=== PATIENT | female | born 1990 | race Caucasian/White ===

== ENCOUNTER → 2019-09-06 11:02 | Outpatient (CLI) | payer OTHER, SELFPAY ==
[2019-08-25 15:05] VITALS: BMI 37.1
[2019-09-06 11:21] LABS: Absolute Lymphocyte Count 3.43 X10^3/uL (0.83-4.51); Absolute Neutrophil Count 7.3 X10^3/uL (2.0-7.7); Basophil# 0.06 X10^3/uL; Basophil% 0.5 % (0-1); Eosinophil# 0.22 X10^3/uL; Eosinophils% 1.9 % (0-5); Hematocrit 43.8 % (37-47); Hemoglobin 14.8 g/dL (12.0-15.0); Lymphocyte # 3.43 X10^3/ul (4.0); Lymphocyte % 29.4 % (19-41); Mean Corp Hgb Conc 33.8 g/dL (32-36); Mean Corpuscular Hgb 28.7 pg (27.0-32.0); Mean Corpuscular Volume 84.9 fL (81-99); Mean Platelet Vol. 11.1 fl (6.2-12.0); Monocyte# 0.61 X10^3/uL; Monocyte% 5.2 % (0-10); NRBC Flagged by Analyzer 0 % (0-5); Neutrophil # 7.31 X10^3/uL (2.7-7.7); Neutrophil % 62.7 % (47-70); Platelet Count 416 K/mm3 (150-450); RBC Distribution Width CV 12.4 % (11.6-14.6); RBC Distribution Width SD 37.9 fl (35.1-43.9); Red Blood Count 5.16 M/mm3 (4.2-5.4); White Blood Count 11.7 K/mm3 (4.4-11.0)
[2019-09-06 11:52] LABS: Hemoglobin A1c 6.2 % (4.2-6.3)
[2019-09-06 12:09] LABS: Cholesterol 173 mg/dL (200); Estradiol 70.2 pg/mL; Glucose 117 mg/dL (74-106); High Density Lipoprotein 15 mg/dL; Prolactin 5.9 ng/mL; Thyroid Stim Hormone (TSH) 2.72 uIU/mL (0.358-3.74); Triglycerides 940 mg/dL
[2019-09-08 09:14] LABS: Progesterone Level 0.26 ng/mL (See Comment)
[2019-09-08 12:07] LABS: DHEA Sulfate 114.7 ug/dL (84.8-378.0)
[2019-09-09 10:42] LABS: Testosterone Free 5.1 pg/mL (0.0-4.2)
[2019-09-10 20:19] LABS: 17-Hydroxyprogesterone 81 ng/dL (.)
== END ==
PROVIDERS: PCP Family Medicine; Referring Provider Nurse Practitioner Women's Health; Visit Provider Nurse Practitioner Women's Health
DX: N97.0 Female infertility associated with anovulation (principal); Z87.42 Personal history of other diseases of the female genital tract
CPT/HCPCS: 36415; 80061; 82627; 82670; 82947; 83036; 83498; 84144; 84146; 84402; 84443; 85025; 82626

== ENCOUNTER → 2019-11-04 07:29 | Outpatient (CLI) | payer OTHER, SELFPAY ==
[2019-08-25 15:05] VITALS: BMI 37.1
[2019-11-04 09:58] LABS: Cholesterol 224 mg/dL (200); High Density Lipoprotein 15 mg/dL; Triglycerides 1134 mg/dL
== END ==
PROVIDERS: PCP Family Medicine; Referring Provider Family Medicine; Visit Provider Family Medicine
DX: E78.1 Pure hyperglyceridemia (principal)
CPT/HCPCS: 36415; 80061

== ENCOUNTER → 2020-08-09 06:12 | Outpatient (CLI) | payer OTHER, SELFPAY ==
[2019-08-25 15:05] VITALS: BMI 37.1
[2020-06-21 08:59] VITALS: BMI 36.5
[2020-08-09 07:11] LABS: Absolute Lymphocyte Count 5.78 X10^3/uL (0.83-4.51); Absolute Neutrophil Count 7.7 X10^3/uL (2.0-7.7); Basophil# 0.09 X10^3/uL; Basophil% 0.6 % (0-1); Eosinophil# 0.37 X10^3/uL; Eosinophils% 2.5 % (0-5); Hematocrit 41.9 % (37-47); Hemoglobin 13.9 g/dL (12.0-15.0); Lymphocyte # 5.78 X10^3/ul (4.0); Lymphocyte % 38.6 % (19-41); Mean Corp Hgb Conc 33.2 g/dL (32-36); Mean Corpuscular Volume 87.3 fL (81-99); Mean Platelet Vol. 10.7 fl (6.2-12.0); Monocyte# 0.97 X10^3/uL; Monocyte% 6.5 % (0-10); NRBC Flagged by Analyzer 0 % (0-5); Neutrophil # 7.72 X10^3/uL (2.7-7.7); Neutrophil % 51.4 % (47-70); POSITIVE DIFFERENTIAL YES; Platelet Count 435 K/mm3 (150-450); RBC Distribution Width CV 13.2 % (11.6-14.6); RBC Distribution Width SD 41.1 fl (35.1-43.9)
[2020-08-09 07:17] LABS: Differential Indicated SCAN CRITERIA MET
[2020-08-09 07:31] LABS: Differential Comment SCANNED; Reactive Lymphocyte 1+
[2020-08-09 07:36] LABS: Microalbumin,Random Urine 46.5 mg/L (NO RANGE EST.); Microalbumin:Creatinine Ratio 19.1 mg/g CRE (<30 mg/g CRE)
[2020-08-09 07:43] LABS: Hemoglobin A1c 6.2 % (3.8-5.6)
[2020-08-09 09:29] LABS: Vitamin D,25 Hydroxy 11.6 ng/mL
[2020-08-09 09:42] LABS: ALB/GLOB Ratio 1.1 RATIO (0.9-2.4); AST(SGOT) 14 U/L (15-37); Alanine Aminotransfer ALT/SGPT 19 U/L (13-56); Albumin, Serum 3.6 g/dL (3.2-5.0); Alkaline Phosphatase 81 U/L (45-117); Anion Gap 7 (5-15); BUN 10 mg/dL (7-18); BUN/Creat Ratio 11.5 RATIO (10-20); Calcium,Total 8.5 mg/dL (8.5-10.1); Chloride 105 mmol/L (98-107); Cholesterol 150 mg/dL (200); Creatinine, Serum 0.87 mg/dL (0.55-1.02); EST Glomerular Filtration Rate 80 mL/min (>60); Est Glom Filt Rate - Afr Amer 96 mL/min (>60); Globulin 3.3 g/dL (2.2-4.2); Glucose 115 mg/dL (74-106); High Density Lipoprotein 18 mg/dL; Potassium 3.7 mmol/L (3.5-5.1); Protein, Total 6.9 g/dL (6.4-8.2); Sodium Level 138 mmol/L (136-145); Triglycerides 666 mg/dL
== END ==
PROVIDERS: PCP Family Medicine; Referring Provider Family Medicine; Visit Provider Family Medicine
DX: E11.9 Type 2 diabetes mellitus without complications (principal); E78.5 Hyperlipidemia, unspecified; E55.9 Vitamin D deficiency, unspecified
CPT/HCPCS: 36415; 80053; 80061; 82043; 82306; 82570; 83036; 85025

== ENCOUNTER → 2020-09-03 09:04 | Outpatient (CLI) | payer OTHER, SELFPAY ==
[2020-06-21 08:59] VITALS: BMI 36.5
[2020-09-03 10:18] LABS: Insulin 132.1 mU/L (2.6-37.6); Vitamin D,25 Hydroxy 9.6 ng/mL
[2020-09-03 10:31] LABS: Glucose 113 mg/dL (74-106); Thyroid Stim Hormone (TSH) 3.35 uIU/mL (0.358-3.74)
== END ==
PROVIDERS: PCP Family Medicine; Referring Provider Obstetrics & Gynecology Gynecology; Visit Provider Obstetrics & Gynecology Gynecology
DX: N92.1 Excessive and frequent menstruation with irregular cycle (principal); E28.2 Polycystic ovarian syndrome
CPT/HCPCS: 36415; 82306; 82947; 83525; 84403; 84443

== ENCOUNTER → 2020-09-17 06:58 | Outpatient (CLI) | payer OTHER, SELFPAY ==
[2020-06-21 08:59] VITALS: BMI 36.5
[2020-09-17 07:37] LABS: Glucose 141 mg/dL (74-106)
[2020-09-17 08:12] LABS: Insulin 81.2 mU/L (2.6-37.6)
== END ==
PROVIDERS: PCP Family Medicine; Referring Provider Obstetrics & Gynecology Gynecology; Visit Provider Obstetrics & Gynecology Gynecology
DX: R73.03 Prediabetes (principal); E88.81 Metabolic syndrome and other insulin resistance; N97.0 Female infertility associated with anovulation; E28.2 Polycystic ovarian syndrome
CPT/HCPCS: 36415; 82947; 83525

== ENCOUNTER 2020-12-08 13:29 | Emergency (ER) | payer OTHER, SELFPAY ==
[2020-06-21 08:59] VITALS: BMI 36.5
[2020-12-08 13:31] VITALS: BP 145/94; PULSE 69; RESP 18; TEMP 36.4; O2SAT 96; BMI 36.3
[2020-12-08] MEDS: Ketorolac 60 MG/2 ML Vial IM (14:28)
--- NOTE | 2020-12-08 16:07 | ED.DEP ---
ED Disposition - Plan for ED Patient: Instructions: ED Back Sprain/Strain Referrals: Theresa Jesus MD [Primary Care Provider] -
--- NOTE | 2020-12-08 18:42 | ED.VISSUMM ---
- ER Visit Summary Date of Service: 12/08/20 Chief Complaint: Back pain History of Present Illness: The patient is a 30 F presenting with back pain. Patient states this started approximately 9 days ago. She has pain in her mid and lower back that radiates to both legs. She denies incontinence. Denies numbness or weakness. She is currently in physical therapy for neck pain. She takes a muscle relaxer and ibuprofen at home. She has history of chronic back pain. She states sometimes it flares intermittently with no injury. She states typically Toradol improves her pain. She denies fever. Denies other complaints. Physical Examination: Vitals are stable. Patient is afebrile. Alert no acute distress. HEENT exam is unremarkable. Neck is supple. Lungs are clear and equal bilaterally. Heart is regular rate and rhythm. Abdomen is soft nontender nondistended. Back: Right paraspinal thoracic and lumbar tenderness. No midline tenderness. Extremities are unremarkable. Skin is warm and dry. No focal neurologic deficit. Normal strength and sensation Remainder of exam is unremarkable. Emergency Department Course and Treatment: Patient was given Toradol IM with improvement. She is advised to follow-up with physical therapy and her primary care physician. Advised return to ED for worsening complaints. Disposition: Discharge home Impression: Acute on chronic back pain This note was generated with [employer] dictation software. It may contain incorrect words, spelling, and punctuation that were not noted in review of the chart prior to signing ED Disposition - Plan for ED Patient: Disposition: Home or Assisted Living Instructions: ED Back Sprain/Strain Referrals: Theresa Jesus MD [Primary Care Provider] -
== END 2020-12-08 16:22 | disposition home or self-care (01) ==
LOC: ED 14:30
PROVIDERS: Emergency Provider Emergency Medicine; PCP Family Medicine
DX: M54.9 Dorsalgia, unspecified (principal); M54.2 Cervicalgia; G89.29 Other chronic pain; I10 Essential (primary) hypertension; J45.909 Unspecified asthma, uncomplicated; E78.00 Pure hypercholesterolemia, unspecified
CPT/HCPCS: 96372; 99282

== ENCOUNTER → 2020-12-20 07:18 | Outpatient (CLI) | payer OTHER, SELFPAY ==
[2020-12-08 13:31] VITALS: BMI 36.3
[2020-12-20 08:23] LABS: Hemoglobin A1c 6.3 % (3.8-5.6)
[2020-12-20 08:38] LABS: ALB/GLOB Ratio 1.2 RATIO (0.9-2.4); AST(SGOT) 12 U/L (15-37); Alanine Aminotransfer ALT/SGPT 22 U/L (13-56); Albumin, Serum 3.8 g/dL (3.2-5.0); Alkaline Phosphatase 57 U/L (45-117); Anion Gap 9 (5-15); BUN 14 mg/dL (7-18); BUN/Creat Ratio 13.5 RATIO (10-20); Calcium,Total 8.8 mg/dL (8.5-10.1); Chloride 104 mmol/L (98-107); Cholesterol 187 mg/dL (200); Creatinine, Serum 1.04 mg/dL (0.55-1.02); EST Glomerular Filtration Rate 65 mL/min (>60); Est Glom Filt Rate - Afr Amer 79 mL/min (>60); Globulin 3.2 g/dL (2.2-4.2); Glucose 112 mg/dL (74-106); High Density Lipoprotein 17 mg/dL; Potassium 3.8 mmol/L (3.5-5.1); Prolactin 9.9 ng/mL; Sodium Level 138 mmol/L (136-145); T4 Free Direct 1.24 ng/dL (0.76-1.46); Thyroid Stim Hormone (TSH) 3.32 uIU/mL (0.358-3.74); Triglycerides 619 mg/dL
[2020-12-20 09:33] LABS: Insulin 39.2 mU/L (2.6-37.6)
[2020-12-21 15:11] LABS: Adrenocorticotropic Hormone 30.1 pg/mL (7.2-63.3); C-Peptide 6.9 ng/mL (1.1-4.4); Thyroid Peroxidase AB < 9 IU/mL (0-34)
[2020-12-26 15:27] LABS: 17-Hydroxyprogesterone 59 ng/dL (.)
== END ==
PROVIDERS: PCP Family Medicine; Referring Provider Internal Medicine Endocrinology, Diabetes & Metabolism; Visit Provider Internal Medicine Endocrinology, Diabetes & Metabolism
DX: E28.2 Polycystic ovarian syndrome (principal); E78.5 Hyperlipidemia, unspecified; E88.81 Metabolic syndrome and other insulin resistance
CPT/HCPCS: 36415; 80053; 80061; 82024; 82533; 82627; 83036; 83498; 83525; 84146; 84403; 84439; 84443; 84681; 86376; 82626

== ENCOUNTER → 2021-03-01 07:01 | Outpatient (CLI) | payer OTHER, SELFPAY ==
[2021-03-01 08:38] LABS: ALB/GLOB Ratio 1.3 RATIO (0.9-2.4); AST(SGOT) 10 U/L (15-37); Alanine Aminotransfer ALT/SGPT 19 U/L (13-56); Alkaline Phosphatase 51 U/L (45-117); Anion Gap 7 (5-15); BUN 19 mg/dL (7-18); BUN/Creat Ratio 16.8 RATIO (10-20); Calcium,Total 9.1 mg/dL (8.5-10.1); Chloride 106 mmol/L (98-107); Cholesterol 215 mg/dL (200); Creatinine, Serum 1.13 mg/dL (0.55-1.02); EST Glomerular Filtration Rate 59 mL/min (>60); Est Glom Filt Rate - Afr Amer 71 mL/min (>60); Globulin 3.1 g/dL (2.2-4.2); Glucose 92 mg/dL (74-106); High Density Lipoprotein 19 mg/dL; Potassium 4.1 mmol/L (3.5-5.1); Protein, Total 7.1 g/dL (6.4-8.2); Sodium Level 139 mmol/L (136-145); Triglycerides 455 mg/dL
[2021-03-01 09:27] LABS: Vitamin D,25 Hydroxy 32.9 ng/mL
== END ==
PROVIDERS: PCP Family Medicine; Referring Provider Family Medicine; Visit Provider Family Medicine
DX: E78.5 Hyperlipidemia, unspecified (principal); E88.81 Metabolic syndrome and other insulin resistance; E55.9 Vitamin D deficiency, unspecified; E11.9 Type 2 diabetes mellitus without complications
CPT/HCPCS: 36415; 80053; 80061; 82306

== ENCOUNTER → 2021-03-10 17:41 | Outpatient (CLI) | payer OTHER, SELFPAY | PROVIDERS: Visit Provider Family Medicine | DX: N39.0 Urinary tract infection, site not specified (principal) | CPT/HCPCS: 87077; 87086; 87088; 87186 ==

== ENCOUNTER → 2021-03-17 17:31 | Outpatient (CLI) | payer OTHER, SELFPAY ==
--- NOTE | 2021-03-17 18:15 | MRI_ITS ---
STUDY: MRI LUMBAR SPINE WITHOUT CONTRAST REASON FOR EXAM: Female, 31 years old. SCOLIOSIS, loss of L5 disc height, lbp TECHNIQUE: Standardized fat and water weighted pulse sequences were obtained in the sagittal and axial planes. COMPARISON: None FINDINGS: No marrow edema or fracture line or compression deformity is seen. Normal lumbar lordosis. There is a dextroscoliosis of the lumbar spine. Normal conus medullaris that terminates at the L1 level. L1-2: Normal endplates. Normal disc height, hydration and morphology. Normal bilateral facet joints. Normal central canal and bilateral lateral recesses. Normal bilateral intervertebral neural foramina. L2-3: Normal endplates. Normal disc height, hydration and morphology. Normal bilateral facet joints. Normal central canal and bilateral lateral recesses. Normal bilateral intervertebral neural foramina. L3-4: Normal endplates. Retrolisthesis of L3 on L4 of 2 to 3 mm. Mild disc space narrowing with a diffuse disc spur complex. Normal bilateral facet joints. Normal central canal and bilateral lateral recesses. Normal bilateral intervertebral neural foramina. L4-5: Mild anterior/paravertebral endplate spurring. Mild posterior disc space narrowing and endplate spurring noted. Mild hypertrophy of the facet joints. Normal central canal and bilateral lateral recesses. Normal bilateral intervertebral neural foramina. L5-S1: Mild anterior endplate spurring is present. Mild disc space narrowing with a diffuse disc spur complex. A superimposed right foraminal disc protrusion is present resulting in compression of the exiting nerve root. Minimal fluid distention of the left facet joint noted. Normal central canal and bilateral lateral recesses. Normal bilateral intervertebral neural foramina. Normal visualized sacral ala. Normal visualized paraspinous soft tissue structures. MRI/Spine Lumbar (Routine) IMPRESSION: 1. Multilevel degenerative changes, as described above. 2. L5-S1 right foraminal disc protrusion resulting in compression of the exiting nerve root Electronically Signed: Angus Williamson MD at 18:44 EDT , Service support ,
== END ==
PROVIDERS: PCP Family Medicine; Referring Provider Family Medicine; Visit Provider Family Medicine
DX: M54.16 Radiculopathy, lumbar region (principal)
CPT/HCPCS: 72148

== ENCOUNTER 2021-09-29 16:10 | Outpatient (CLI) | payer OTHER, SELFPAY ==
--- NOTE | 2021-09-29 16:31 | MRI_ITS ---
EXAM: MR THORACIC SPINE WITHOUT INTRAVENOUS CONTRAST CLINICAL INDICATION: PAIN, rt sided rib pain TECHNIQUE: Multiplanar and multisequence MR images of the thoracic spine without intravenous contrast. This report was created using [employer] technology. COMPARISON: None. FINDINGS: VERTEBRAE: Unremarkable. No fracture. Normal vertebral bodies and posterior elements. Normal alignment. There is preservation of the normal thoracic kyphosis. No scoliosis. DISCS/SPINAL CANAL/NEURAL FORAMINA: Right paracentral disc herniation with extrusion along the T8 vertebral body at the level of T8-9 with impression upon anterior thecal sac. No significant spinal stenosis. Left TARLOV cyst at T9-10. SPINAL CORD: Unremarkable. Normal in signal and morphology. Normal conus medullaris. SOFT TISSUES: Unremarkable. MRI/Spine Thoracic (Routine) IMPRESSION: Right paracentral disc herniation with extrusion along the T8 vertebral body at the level of T8-9 with impression upon anterior thecal sac. No significant spinal stenosis. Electronically Signed: Eugene aWre MD at 18:24 EST ,
== END 2021-09-29 23:59 | disposition home or self-care (01) ==
PROVIDERS: PCP Family Medicine; Visit Provider Physician Assistant
DX: M54.14 Radiculopathy, thoracic region (principal)
CPT/HCPCS: 72146

== ENCOUNTER → 2022-10-01 | Outpatient (CLI) | payer OTHER, SELFPAY ==
--- NOTE | 2022-10-01 07:36 | MRI_ITS ---
INDICATION: RT ANKLE PAIN EXAMINATION: MRI - RIGHT MR Ankle W/O Contrast TECHNIQUE: Multiplanar and multisequence MR images of the right ankle. IV Contrast Dosage and Agent: None. COMPARISON: None. FINDINGS: BONE: Talar dome intact. No fracture or marrow edema. 8mm navicular subchondral cyst noted at the navicular cuboid articulation. No aggressive osseous lesion. No osteochondral defect. JOINT: Articular cartilage intact. No joint effusion. LIGAMENTS: The syndesmotic ligaments, lateral collateral ligaments, and medial collateral ligaments are intact. Lisfranc ligament is intact. TENDONS: The peroneal tendons, flexor tendons, and extensor tendons are intact. Achilles tendon intact. 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 MUSCLES: Normal bulk and signal. MISCELLANEOUS: Plantar fascia intact. Normal fat in the sinus tarsi. OTHER SOFT TISSUES: Unremarkable. MRI/Lower Ext Joint Only (Routine) IMPRESSION: No specific finding to explain patient''s pain. 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 Electronically Signed: Pedro Corrigan MD at 20:38 EST ,
== END | disposition home or self-care (01) ==
PROVIDERS: PCP Family Medicine; Referring Provider Podiatrist; Visit Provider Podiatrist
DX: M25.571 Pain in right ankle and joints of right foot (principal)
CPT/HCPCS: 73721

== ENCOUNTER → 2022-10-25 | Outpatient (CLI) | payer OTHER, SELFPAY ==
[2022-10-25 17:11] LABS: Absolute Lymphocyte Count 4.14 X10^3/uL (0.83-4.51); Absolute Neutrophil Count 8.1 X10^3/uL (2.0-7.7); Basophil# 0.07 X10^3/uL; Basophil% 0.5 % (0-1); Eosinophil# 0.25 X10^3/uL; Eosinophils% 1.9 % (0-5); Hematocrit 38.6 % (37-47); Hemoglobin 12.7 g/dL (12.0-15.0); Lymphocyte # 4.14 X10^3/ul (0.83-4.51); Lymphocyte % 30.9 % (19-41); Mean Corp Hgb Conc 32.9 g/dL (32-36); Mean Corpuscular Hgb 27.5 pg (27.0-32.0); Mean Corpuscular Volume 83.5 fL (81-99); Mean Platelet Vol. 10.2 fl (6.2-12.0); Monocyte# 0.74 X10^3/uL; Monocyte% 5.5 % (0-10); NRBC Flagged by Analyzer 0 % (0-5); Neutrophil # 8.14 X10^3/uL (2.7-7.7); Neutrophil % 60.9 % (47-70); Platelet Count 558 K/mm3 (150-450); RBC Distribution Width CV 13.2 % (11.6-14.6); RBC Distribution Width SD 40.3 fl (35.1-43.9); Red Blood Count 4.62 M/mm3 (4.2-5.4); White Blood Count 13.4 K/mm3 (4.4-11.0)
[2022-10-25 17:16] LABS: Erythrocyte Sedimentation Rate 7 mm/hr (0-30)
[2022-10-25 17:57] LABS: ALB/GLOB Ratio 1.2 RATIO (0.9-2.4); AST(SGOT) 22 U/L (15-37); Alanine Aminotransfer ALT/SGPT 26 U/L (13-56); Albumin, Serum 4.1 g/dL (3.2-5.0); Alkaline Phosphatase 47 U/L (45-117); Anion Gap 9 (5-15); BUN 9 mg/dL (7-18); BUN/Creat Ratio 8.8 RATIO (10-20); CRP 5.56 mg/L (0.0-3.0); Calcium,Total 9.8 mg/dL (8.5-10.1); Chloride 103 mmol/L (98-107); Creatinine, Serum 1.02 mg/dL (0.55-1.02); EST Glomerular Filtration Rate 66 mL/min (>60); Est Glom Filt Rate - Afr Amer 79 mL/min (>60); Globulin 3.5 g/dL (2.2-4.2); Glucose 94 mg/dL (74-106); Potassium 3.6 mmol/L (3.5-5.1); Protein, Total 7.6 g/dL (6.4-8.2); Rheumatoid Factor < 10.0 IU/mL (<15); Sodium Level 137 mmol/L (136-145)
[2022-10-27 14:16] LABS: CCP IgG Antibodies 13 units (0-19)
[2022-10-27 15:08] LABS: SJOGREN'S Anti-SS-A test < 0.2 AI (0.0-0.9); SJOGREN'S Anti-SS-B test < 0.2 AI (0.0-0.9)
[2022-10-27 15:25] LABS: ANTINUCLEAR ANTIBODIES DIRECT Negative (Negative)
== END | disposition home or self-care (01) ==
LOC: LAB 16:33
PROVIDERS: PCP Family Medicine; Visit Provider Podiatrist
DX: M77.51 Other enthesopathy of right foot and ankle (principal)
CPT/HCPCS: 36415; 80053; 85025; 85652; 86038; 86140; 86200; 86235; 86431

== ENCOUNTER 2022-11-20 18:00 | Outpatient (RCR) | payer OTHER, SELFPAY ==
--- NOTE | 2022-11-09 17:56 | HP.PTEVAL_ITS ---
Patient's Visit Information SUMAYA LEMONS is a 32 year old F referred to Physical Therapy by Dr. Blake Gabriel DPM with a diagnosis of PERONEAL TENDONIITIS. Date of Evaluation: 11/09/22 Physical Therapist: Rhaeem Clark, PT, Cert MDT, OCS - Visit Plan Frequency: 2x /Week Duration: 4 Weeks Plan: PT INTERVENTIONS US/ESTIM/CP TO PERONEAL TENDON, ROM ,FLEXABLITY G-S ,ISOMTRICS ,AND STRENGTHNEING ANKLE EX'S - Subjective This 32 y/o female presents to physical therapy for right foot pain peroneal tendonitis. Patient has had about 1 year ago which has progressively worsen in past [address] Gabriel tried cortisone 2-3 injections , CAM boot ~ 1-2 weeks , and has foot orthotics. Symptoms have not better in 2weeks post therapy ,may consider surgery. peroneal tendinitis. Aggravating factors walking and standing ,driving and inactivity after sitting ,stairs. Alleviating ice . Patient had MRI showed Tried prednisone pack ,meloxicam which has stopped. Denies paresthesia/tingling .Patient pain affects sleeping. Patient condition affects QOL and function. Goals to decrease foot pain. SOCAIL: . VOCATION: Home on computer - Pain Right Foot Pain Intensity (Out of 10): 6 Pain Intensity Range: 10 - Objective POSTURE: pes planus. PALAPTION: tender peroneal tendon. GAIT: ambulates with antalgic gait. NEURO: denies paresthesia/tingling ,reflexes intact. AROM: dorsiflexion 0- degrees ,plantarflexion 65 degrees ,eversion 10 degrees pain , inversion 45 degrees. MMT: anterior tibial ,4/5 peroneus 4/5 pain ,posterior tibia 4-/5 pain, G-S 4-/5 pain. FLEXABLITY: G-S mod tight - Balance/Special Test Scores Lower Extremity Functional Score: 36 - Goals Goal 1:: Patient to be I with HEP Goal Time Frame: 4-6 Weeks Goal 2:: Patient to demonstrate 40 % improvement with decrease pain and improved function Goal Time Frame: 4-6 Weeks Goal 3:: Patient to improve quality of gait 70% of the time with less antalgic gait Goal Time Frame: 4-6 Weeks Goal 4:: Patient to improve strength of ankle to improve gait with less pain Goal Time Frame: 4-6 Weeks Goal 5:: Patient to improve LFES score by 5 points to improve function Goal Time Frame: 4-6 Weeks - Rehabilitation Potential Physical Therapy Diagnosis: This patient has peroneal tendon pain along with pain dorsal foot with decrease ROM ,weakness ,pain with palpation which affects standing and walking thus will benefit from skilled PT Rehabilitation Potential: Good - Anticipated Interventions Patient/Client Instruction: Educate patient on: Condition, Plan of Care For the Purpose of:: To decrease pain, To decrease swelling/inflammation, To increase ROM, To improve nutrient delivery to tissue, To increase oxygenation perfusion, To improve muscle performance and motor function, To increase tolerance to activity/condition/position, To improve ability of physical actions for home/community/work/leisure, To improve health of tissue, To decrease soft tissue restriction, To increase flexibility/ROM Therapeutic Exercise to Include: Strength training, Balance training, Flexibilty training, Passive ROM, Active ROM Comment: ANKLE For the Purpose of:: To decrease pain, To increase ROM, To improve nutrient delivery to tissue, To increase oxygenation perfusion, To improve health of tissue, To decrease soft tissue restriction, To increase flexibility/ROM TENS: Yes IF ES: Yes Cryotherapy (ice pack, ice massage): Yes Ultrasound (thermal/non thermal): Yes For the Purpose of:: To decrease pain, To increase ROM, To improve nutrient delivery to tissue, To increase oxygenation perfusion, To improve health of tissue, To decrease soft tissue restriction, To increase flexibility/ROM Thank you for the opportunity to evaluate your patient. For Medicare and Medicare HMO plans, please review the plan of care and approve it. It will need to be FAXED BACK to us at [phone] for Medicare purposes. For Medicare only, by signing this I certify the plan of care. Please let me know if there are questions or concerns regarding this plan of care. Physician Signature: Date:
--- NOTE | 2023-01-04 09:44 | HP.PTDCSUM ---
It has been my pleasure to treat SUMAYA LEMONS referred by Dr. Blake Gabriel DPM, with the diagnosis of PERONEAL TENDONIITIS for a total of 4 visit(s). Discharge Date: Please see the following information for a summary of their discharge status. Subjective: Patient staes alot of pain Right Foot Pain Intensity (Out of 10): 8 Objective/Function: DEFERRED EX'S TODAY DUE TO LEVEL OF PAIN ,MODALTIES FELT GOOD POST TX ASSESS EFFECTIVENESS Goal 1:: Patient to be I with HEP Goal 2:: Patient to demonstrate 40 % improvement with decrease pain and improved function Goal 3:: Patient to improve quality of gait 70% of the time with less antalgic gait Goal 4:: Patient to improve strength of ankle to improve gait with less pain Goal 5:: Patient to improve LFES score by 5 points to improve function Plan: D/C RTD If there are questions or concerns regarding this patient's physical therapy, please feel free to call me at [phone]. Thank you for the referral of this patient. Sincerely, Raheem Clark, PT, Cert MDT, OCS Balance/Gait/Functional tests - Balance/Special Test Scores Lower Extremity Functional Score: 36
== END 2022-11-20 19:00 | disposition home or self-care (01) ==
LOC: PT 18:00
PROVIDERS: PCP Family Medicine; Referring Provider Podiatrist; Visit Provider Podiatrist
DX: M76.71 Peroneal tendinitis, right leg (principal)
CPT/HCPCS: 97014; 97035; 97110; 97140; 97162; G0283

== ENCOUNTER → 2023-10-04 | Outpatient (CLI) | payer OTHER, SELFPAY | END | disposition home or self-care (01) | LOC: LABSPEC 15:00 | PROVIDERS: PCP Family Medicine; Referring Provider Otolaryngology Otolaryngology/Facial Plastic Surgery; Visit Provider Otolaryngology Otolaryngology/Facial Plastic Surgery | DX: J02.9 Acute pharyngitis, unspecified (principal) | CPT/HCPCS: 87070; 87205 ==

== ENCOUNTER → 2024-03-31 | Outpatient (CLI) | payer OTHER, SELFPAY ==
--- NOTE | 2024-03-31 13:15 | MRI_ITS ---
EXAM: MR RIGHT UPPER EXTREMITY WITHOUT INTRAVENOUS CONTRAST, SHOULDER CLINICAL INDICATION: PAIN TECHNIQUE: Multiplanar and multisequence MR images of the right shoulder without intravenous contrast. COMPARISON: No relevant prior studies available. FINDINGS: TENDONS: SUPRASPINATUS: Unremarkable. Intact. INFRASPINATUS: Unremarkable. Intact. SUBSCAPULARIS: Unremarkable. Intact. TERES MINOR: Unremarkable. Intact. BICEPS BRACHII, LONG HEAD: Unremarkable. The extra-articular biceps tendon is in the bicipital groove. The intra-articular biceps tendon is normal. LIGAMENTS: GLENOHUMERAL: Unremarkable. Intact. MUSCLES: Unremarkable. No rotator cuff muscle atrophy. FLUID: Unremarkable. No joint effusion. No subacromial-subdeltoid space bursal fluid. CARTILAGE: Unremarkable. Articular cartilage intact. GLENOID LABRUM: Unremarkable. Intact, limited evaluation on non-arthrographic exam. BONES/JOINTS: Mild to moderate hypertrophic degenerative changes of the acromioclavicular joint with mild mass effect on the underlying soft tissues. Type II acromion with curved undersurface. No subacromial enthesophyte or os acromiale. No fracture. No abnormal bone marrow signal. OTHER SOFT TISSUES: Unremarkable. No rotator interval edema. MRI/Upper Ext Joint Only(Routine) IMPRESSION: Mild to moderate hypertrophic degenerative changes of the acromioclavicular joint with mild mass effect on the underlying soft tissues. No rotator cuff or labral tear. No other significant internal derangement. Electronically Signed: Erik Tovar MD at 1:24 EDT ,
== END | disposition home or self-care (01) ==
LOC: MRI 13:20
PROVIDERS: PCP Family Medicine
DX: M25.511 Pain in right shoulder (principal)
CPT/HCPCS: 73221

== ENCOUNTER → 2024-05-13 | Outpatient (CLI) | payer OTHER, SELFPAY ==
--- NOTE | 2024-05-13 10:15 | NEURO ---
NCS and/or EMG Patient Report Ordering Doctor: Dorene Watson DATE OF SERVICE: 05/13/24 Clinical Summary: 38 year old female patient with symptoms of pain that radiates from the right shoulder down the arm into the hand/fingers for the past 1-2 months. Nerve Conduction Studies Summary: Nerve conduction studies performed in the right upper extremity were normal. Needle Examination Summary: Needle examination of select muscles of the right upper extremity demonstrated increased insertional activity and spontaneous activity (positive sharp waves) in the right biceps muscle. Impression: Isolated positive sharp waves in the right biceps muscle, although not definitively diagnostic by itself, can be seen in the setting of a subacute right C5/C6 radiculopathy. There is no electrodiagnostic evidence of a right median or ulnar nerve entrapment. Multi Select Codes Neurology Neurology Interp Codes: 10452-68 Musc test done w/n test comp (interp) (1) and 48332-08 Nrv cndj test 7-8 studies (interp)
== END | disposition home or self-care (01) ==
PROVIDERS: PCP Family Medicine; Referring Provider Physician Assistant; Visit Provider Physician Assistant
DX: R20.0 Anesthesia of skin (principal)
CPT/HCPCS: 95886; 95910

== ENCOUNTER → 2024-06-12 | Outpatient (CLI) | payer OTHER, SELFPAY | END | disposition home or self-care (01) | PROVIDERS: PCP Family Medicine; Referring Provider Otolaryngology Otolaryngology/Facial Plastic Surgery; Visit Provider Otolaryngology Otolaryngology/Facial Plastic Surgery | DX: J32.9 Chronic sinusitis, unspecified (principal) | CPT/HCPCS: 87070; 87205 ==

== ENCOUNTER → 2025-03-19 | Outpatient (CLI) | payer OTHER, SELFPAY | END | disposition home or self-care (01) | PROVIDERS: PCP Family Medicine | DX: G43.909 Migraine, unspecified, not intractable, without status migrainosus (principal) | CPT/HCPCS: 70553; A9575 ==

== ENCOUNTER → 2025-05-20 | Outpatient (CLI) | payer OTHER, SELFPAY ==
[2025-05-20 12:50] LABS: Hematocrit 35.4 % (37-47); Hemoglobin 11.7 g/dL (12.0-15.0); Immature Granulocytes Count 0.040 X10^3/uL (0.0-0.0); Mean Corp Hgb Conc 33.1 g/dL (32-36); Mean Corpuscular Volume 86.6 fL (81-99); Mean Platelet Vol. 11.3 fl (6.2-12.0); NRBC Flagged by Analyzer 0 % (0-5); Platelet Count 509 K/mm3 (150-450); RBC Distribution Width CV 13.1 % (11.6-14.6); RBC Distribution Width SD 40.5 fl (35.1-43.9); Red Blood Count 4.09 M/mm3 (4.2-5.4); White Blood Count 11.1 K/mm3 (4.4-11.0)
[2025-05-20 13:19] LABS: Vitamin B12 295 pg/mL (180-914)
[2025-05-20 13:20] LABS: CRP < 3.00 mg/L (0.0-3.0); Magnesium 2.0 mg/dL (1.5-2.2)
== END | disposition home or self-care (01) ==
LOC: MTLAB 09:43
PROVIDERS: PCP Family Medicine
DX: G43.909 Migraine, unspecified, not intractable, without status migrainosus (principal)
CPT/HCPCS: 36415; 82607; 83735; 85025; 85652; 86140